=== PATIENT | female | born 1940 | race Caucasian/White ===

== ENCOUNTER 2024-02-05 06:36 | Day surgery (SDC) | payer OTHER, SELFPAY ==
--- NOTE | 2024-01-24 12:38 | CM ---
Addendum entered by Laura Dunn 02/05/24 09:47:
VN referral sent to [facility] for PT, OT, SN; start of care requested on 02/06. Confirmation received that they can accept referra. Fax number for discharge instructions: [phone]
Original Note:
Patient is scheduled for a left ankle fusion on 02/05/24. Spoke with patient prior to surgery via telephone to complete case management assessment and assess for discharge planning needs. Patient reports that she lives with her in a one floor
cottage at [facility]. There are no steps to enter. She currently functions independently. She has a rolling walker, cane, raised toilet seat with rails and shower seat. She had VN services through [facility] after her R TKR (done at
in 2022). She has a prescription plan and uses [facility] in [place].
PCP is Warren Rebollar
Discussed discharge plans. Patient anticipates being NWB for 8 weeks. She plans to return to her cottage at [facility] and states that her will be able to assist her. She has worked with PT at [facility] (PT provided by [facility]) using a knee scooter and a knee sling on her walker. She states that the PT has recommended she use the knee sling on her walker (she will bring this walker with her on day of surgery). Discussed VN services and she would like to use [facility] again.
Call placed to [facility] ([phone]); spoke with Bill. Alerted him to need for VN services after surgery. Referral will be made to [facility] through [employer] prior to surgery.
[2024-01-26 09:22] VITALS: BMI 23.6
[2024-01-26 09:57] LABS: % Basophils 0.5 % (0-2); % Eosinophils 1.9 % (0-6); % Immature Granulocytes 0.3 % (0-0.5); % Lymphocytes 24.3 % (20.5-51.1); % Monocytes 9.3 % (1.7-9.3); % Neutrophils 63.7 % (42.2-75.2); Absolute Eosinophils 0.1 10^3/uL (0-0.7); Absolute Lymphocytes 1.8 10^3/uL (1.2-3.4); Absolute Monocytes 0.7 10^3/uL (0.1-0.6); Absolute Neutrophils 4.8 10^3/uL (1.4-6.5); Hematocrit 35.7 % (37.0-47.0); Hemoglobin 11.7 g/dL (12.0-16.0); Mean Corp Hgb Conc. 32.8 g/dL (33.0-37.0); Mean Corpuscular Hgb 31.5 pg (27.0-31.0); Mean Corpuscular Volume 96.2 fL (81.0-99.0); Mean Platelet Volume 10.9 fL (7.4-10.4); Nucleated Red Blood Cells % 0 %; Platelet Count 193 10^3/uL (130-400); Red Blood Cell Count 3.71 10^6/uL (4.20-5.40); Red Cell Dist. Width 13.2 % (11.5-14.5); White Blood Cell Count 7.5 10^3/uL (4.8-10.8)
[2024-01-26 10:09] LABS: Blood Urea Nitrogen 16 mg/dl (7-17); Calcium 9.1 mg/dl (8.4-10.2); Carbon Dioxide 28 mmol/L (22-30); Chloride 107 mmol/L (98-107); Estimated Creatinine Clearance 65 ml/min; Glucose 80 mg/dl (70-99); Potassium 4.6 mmol/L (3.5-5.1); Sodium 137 mmol/L (135-145); eGFR > 60.00
[2024-02-05] VITALS (9 sets, daily range): BP systolic 113–144; BP diastolic 48–66; BMI 23.6
[2024-02-05] MEDS: MOBIC 15 MG PO (12:57)
[2024-02-05] MEDS: NORMOSOL-R 1000 IV (13:10)
--- NOTE | 2024-02-05 16:51 | W.PN.UPDATE ---
Update Note
Progress Note Update
s/p left subtalar joint arthrodesis
-NWB LLE
-ABx x 24 hours or until discharge if D/C'ed earlier than 24 hours
-PT/OT Consult
-Dressings C/D/I
-Will Follow
[2024-02-05] MEDS: DILAUDID 0.5 MG IV (17:00)
--- NOTE | 2024-02-05 17:30 | HPS.HSE ---
Family Physician
-
Family Physician: Warren Rebollar
Chief Complaint
-
84-year-old female past medical history of hypotension, hemochromatosis, osteoarthritis, chronic diarrhea, hyperlipidemia, hiatal hernia, diverticulosis, right renal cyst, small bowel obstruction status post small bowel resection, essential tremor,
restless leg syndrome, stress incontinence, Raynaud's syndrome presented for left subtalar joint arthrodesis due to arch pain of the left foot ongoing for years.
Patient denies any complaints at this time. Denies smoking or alcohol use.
History of Present Illness
hypotension, hemochromatosis, osteoarthritis, chronic diarrhea, hyperlipidemia, hiatal hernia, diverticulosis, right renal cyst, small bowel obstruction status post small bowel resection, essential tremor, restless leg syndrome, stress
incontinence, Raynaud's syndrome
Medical History
Past Medical History
Past Medical History: Reports Other (hypotension, hemochromatosis, osteoarthritis, chronic diarrhea, hyperlipidemia, hiatal hernia, diverticulosis, right renal cyst, small bowel obstruction status post small bowel resection, essential tremor,
restless leg syndrome, stress incontinence, Raynaud's syndrome)
Past Surgical History: Reports None and Other
Social History
Tobacco: Non-smoker
Alcohol: None
Drug: None
Family History
Family History: Not pertinent
Allergies / Home Medications
Allergies reflects when Allergies were last updated in [facility] [employer].
Home Medications with original date entered in [facility] [employer]
Allergy/Medication List:
Allergies
Allergy/AdvReac Type Severity Reaction Status Date / Time
acetaminophen [From Tylenol] Allergy Intermediate diarrhea Verified 02/05/24 12:52
amoxicillin [From Augmentin] Allergy Intermediate diarrhea Verified 02/05/24 12:52
clavulanic acid Allergy Intermediate diarrhea Verified 02/05/24 12:52
[From Augmentin]
azithromycin Allergy diarrhea Verified 02/05/24 12:52
chlorpheniramine maleate Allergy COLLAPSE/NA Verified 02/05/24 12:52
[From Coricidin HBP Cough & USEA
Cold]
dextromethorphan HBr Allergy COLLAPSE/NA Verified 02/05/24 12:52
[From Coricidin HBP Cough & USEA
Cold]
nitrofurantoin Allergy Hives Verified 02/05/24 12:52
pseudoephedrine Allergy NAUSEA AND Verified 02/05/24 12:52
VOMITING/WEAK
ranitidine [From Zantac] Allergy Swelling Verified 02/05/24 12:52
Sulfa (Sulfonamide Allergy SEVERE Verified 02/05/24 12:52
Antibiotics) HIVES
sulfamethoxazole Allergy Hives Verified 02/05/24 12:52
trimethoprim Allergy Hives Verified 02/05/24 12:52
codeine AdvReac GI upset Verified 02/05/24 12:52
dimenhydrinate AdvReac Excessive Verified 02/05/24 12:52
[From Dramamine] drowsiness
Home Medications
loperamide 2 mg capsule 2 mg PO Q4H PRN diarrnea 03/22/23
primidone 50 mg tablet 25 mg PO HS Neurological Condition 03/22/23
cholecalciferol (vitamin D3) 25 mcg (1,000 unit) tablet 25 mcg PO MOWEFR Supplement 03/30/23
artificial tears with lanolin eye ointment 1 applic BOTH EYES DAILY 04/20/23
pimecrolimus 1 % topical cream 1 applic topical DAILY #0 grams 04/21/23
estradiol 0.01% (0.1 mg/gram) vaginal cream (Estrace) 1 g vaginal QWEEK 01/30/24
ibuprofen 200 mg tablet 200 - 400 mg PO Q6H PRN pain 01/30/24
meloxicam 7.5 mg tablet 7.5 mg PO PRN PRN pain 01/30/24
psyllium seed (sugar) oral powder (Metamucil (sugar) oral powder) 1 tsp PO DAILY 01/30/24
tacrolimus 0.1 % topical ointment (Protopic) 1 applic topical WEEKLY 01/30/24
Review of Systems
-
History Source: Patient
A 12 point ROS was completed and negative except as noted: Yes
Constitutional: Reports No Symptoms
EENT: Reports No Symptoms
Respiratory: Reports No Symptoms
Cardiac: Reports No Symptoms
Abdomen/GI: Reports No Symptoms
: Reports No Symptoms
Musculoskeletal: Reports No Symptoms
Skin: Reports No Symptoms
Neurological: Reports No Symptoms
Endocrine: Reports No Symptoms
Hematologic/Lymphatic: Reports No Symptoms
Psych: Reports No Symptoms
Physical Exam
Vital Signs
Vital Signs
Temp Pulse Resp BP Pulse Ox
97.3 F 65 18 134/48 100
02/05/24 16:40 02/05/24 17:15 02/05/24 17:15 02/05/24 17:15 02/05/24 17:15
Physical Exam
General: Well Developed, Well Nourished and No Apparent Distress
HEENT: NormoCephalic, Moist mucous membranes and Atraumatic
Respiratory: Clear
Cardiac: S1/S2 and Regular Rhythm; No Murmur or Rub
GI: Soft, Non Tender, Non Distended and Normal Bowel Sounds; No Organomegaly
Rectal: Deferred by Provider
Musculoskeletal: No Clubbing, No Cyanosis and No Edema
Skin: No Rash
Neuro: Nonfocal/grossly intact
Laboratory Results
-
01/26/24 09:16
01/26/24 09:16
Data Reviewed
-
Lab Data: Labs Reviewed by me
Old Records: Reviewed
Impression/Plan
-
IMPRESSION:
PLAN:
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
-meloxicam, tramadol, gabapentin, oxycodone for pain
-Patient refusing Tylenol
-Nonweightbearing of left lower extremity
-Continue cefazolin until discharge or for 24 hours
-PT/OT
Osteoarthritis
Hemochromatosis
History of ocular migraines
Chronic diarrhea
-Continue loperamide
History of hypotension
Hyperlipidemia
Hiatal hernia
Diverticulosis
History of right renal cyst
Small bowel obstruction status post small bowel resection
Essential tremor
-Continue primidone
Restless leg syndrome
Stress incontinence
Raynaud's syndrome
Regular diet
Full code
DVT prophylaxis�none
--- NOTE | 2024-02-05 18:50 | PTCARENOTE ---
Received patient from PACU via bed around 1809 in stable condition. Left LE with poonam wrap/ splint. +sensation + movement. NWB LLE. Call [facility] in reach.
[2024-02-05] MEDS: ANCEF 5 IV (21:44)
[2024-02-05] MEDS: NEURONTIN 300 MG PO (21:44)
[2024-02-05] MEDS: MYSOLINE 25 MG PO (21:44)
[2024-02-06] VITALS (7 sets, daily range): BP systolic 106–126; BP diastolic 45–66; PULSE 81; O2SAT 98
[2024-02-06] MEDS: ANCEF 5 IV ×3 (05:22→23:07)
--- NOTE | 2024-02-06 07:03 | W.PN.ORTHO ---
Today's Communication / Plan
-
PT/OT
Aspirin for DVT prophylaxis
Strict nonweightbearing left lower extremity
Antibiotics for 24 hours then home
Follow-up 2 weeks postop for suture removal
Assessment
.
Distal Motor Intact: Yes
Dressing:
Clean, dry and intact.
Plan
.
Surgery / Date: L STJ fusion 02/04 [facility]
DVT Prophylaxis: Aspirin
Activity:
Out of bed.
PT/OT
Discharge Plan: Home
Subjective
.
.:
Patient resting comfortably.
Vital Signs and Labs
.
Vital Signs and Labs:
Lab Results
01/26/24 09:16
01/26/24 09:16
Temp Pulse Resp BP Pulse Ox
98.2 F 77 16 119/54 97
02/06/24 03:40 02/06/24 03:40 02/06/24 03:40 02/06/24 03:40 02/06/24 03:40
[2024-02-06] MEDS: METAMUCIL, KONSYL 1 PACKET PO (08:41)
[2024-02-06] MEDS: REFRESH CELLUVISC GEL 1 DROPS BOTH EYES (08:41)
[2024-02-06] MEDS: NEURONTIN 300 MG PO ×3 (08:42→21:49)
[2024-02-06] MEDS: ASPIRIN 325 MG PO (08:42)
--- NOTE | 2024-02-06 09:29 | W.PN.HOSP.TC ---
Today's Communication/Plan
-
F/U PT Eval
possible DC later today versus tomorrow morning
IV Cefazolin
Assessment / Plan
Assessment / Plan
84-year-old female past medical history of hypotension, hemochromatosis, osteoarthritis, chronic diarrhea, hyperlipidemia, hiatal hernia, diverticulosis, right renal cyst, small bowel obstruction status post small bowel resection, essential tremor,
restless leg syndrome, stress incontinence, Raynaud's syndrome presented for left subtalar joint arthrodesis due to arch pain of the left foot ongoing for years.
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
-meloxicam, tramadol, gabapentin, oxycodone for pain
-Nonweightbearing of left lower extremity
-Continue cefazolin
-PT - F/U recs
-possible DC after evening antibiotics
Osteoarthritis
Hemochromatosis
History of ocular migraines
Chronic diarrhea
-Continue loperamide
History of hypotension
Hyperlipidemia
Hiatal hernia
Diverticulosis
History of right renal cyst
Small bowel obstruction status post small bowel resection
Essential tremor
-Continue primidone
Restless leg syndrome
Stress incontinence
Raynaud's syndrome
Regular diet
Full code
DVT prophylaxis�none
Anticipated Discharge: Within 24 hours
Subjective/Interval History
-
Date of Service: February 06, 2024
some pain left foot
no chest pain or shortness of breath
Objective Data
-
Vital Signs:
Vital Signs
Temp Pulse Resp BP Pulse Ox
98.2 F 77 16 119/54 97
02/06/24 03:40 02/06/24 03:40 02/06/24 03:40 02/06/24 03:40 02/06/24 03:40
I&O
05/02/06/24 02/07/24
06:59 06:59 06:59
Intake Total 370 / 370
Output Total 800 / 800
Balance -430 / -430
Review of Systems
-
History Source: Patient
All other systems: Reviewed and negative
Physical Exam
-
General: No Apparent Distress
HEENT: PERRLA
Respiratory: Clear to Auscultation; Negative Wheezes
Cardiac: Regular Rhythm and S1/S2
GI: Soft and Nontender
Musculoskeletal: Other (left foot wrapped )
Skin: Warm and Dry; Negative Rash
Neuro: AO x 3
Psych: Calm
Data Reviewed
-
Diagnostic Radiology: Report Reviewed by me
Labs: Labs Reviewed by me
[2024-02-06] MEDS: ROXICODONE 5 MG PO ×2 (13:25→23:09)
--- NOTE | 2024-02-06 14:37 | CM ---
Strict nonweightbearing status LLE. Discharge Plan of Care: Home with with [facility].
FAX # [phone].
[2024-02-06] MEDS: ULTRAM 50 MG PO (18:08)
[2024-02-06] MEDS: COLACE 100 MG PO (18:16)
[2024-02-06] MEDS: MYSOLINE 25 MG PO (21:49)
--- NOTE | 2024-02-07 04:26 | DOWNTIME ---
There was a [employer] Client Release Of Information Clerk Downtime on 02/06/2024 from 0100 to 02/07/2024 at 0300. Downtime documentation of patient's care, including medication administrations, has been reconciled in the electronic record per guidelines. Refer to the
patient's paper chart under the miscellaneous tab to see printed paper medication records and downtime forms.
[2024-02-07] MEDS: ANCEF 5 IV (05:25)
[2024-02-07 07:41] VITALS: BP 109/72
[2024-02-07] MEDS: NEURONTIN 300 MG PO (08:11)
[2024-02-07] MEDS: ASPIRIN 325 MG PO (08:11)
[2024-02-07] MEDS: REFRESH CELLUVISC GEL 1 DROPS BOTH EYES (08:11)
[2024-02-07] MEDS: METAMUCIL, KONSYL 1 PACKET PO (08:11)
[2024-02-07] MEDS: VITAMIN D3 (cholecalciferol) 25 MCG PO (08:14)
--- NOTE | 2024-02-07 08:16 | W.PN.ORTHO ---
Today's Communication / Plan
-
PT/OT
Aspirin for DVT prophylaxis
Strict nonweightbearing left lower extremity
Antibiotics for 24 hours then home
Follow-up 2 weeks postop for suture removal
Assessment
.
Distal Motor Intact: Yes
Dressing:
Clean, dry and intact.
Plan
.
Surgery / Date: L STJ fusion 02/04 [facility]
Activity:
Out of bed.
PT/OT
Subjective
.
.:
Patient resting comfortably.
Vital Signs and Labs
.
Vital Signs and Labs:
Lab Results
01/26/24 09:16
01/26/24 09:16
Temp Pulse Resp BP Pulse Ox
98.8 F 80 16 109/72 97
02/07/24 07:41 02/07/24 07:41 02/07/24 07:41 02/07/24 07:41 02/07/24 07:41
[2024-02-07] MEDS: COLACE 100 MG PO (08:24)
--- NOTE | 2024-02-07 09:40 | W.PN.HOSP.TC ---
Today's Communication/Plan
-
OK for DC today after seen by PT
Assessment / Plan
Assessment / Plan
84-year-old female past medical history of hypotension, hemochromatosis, osteoarthritis, chronic diarrhea, hyperlipidemia, hiatal hernia, diverticulosis, right renal cyst, small bowel obstruction status post small bowel resection, essential tremor,
restless leg syndrome, stress incontinence, Raynaud's syndrome presented for left subtalar joint arthrodesis due to arch pain of the left foot ongoing for years.
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
-pain control
-Nonweightbearing of left lower extremity
-s/p 24 hours IV antibiotics
-PT --> HH, OK for DC today
-follow up 2 weeks post-op for suture removal
Osteoarthritis
Hemochromatosis
History of ocular migraines
Chronic diarrhea
-Continue loperamide
History of hypotension
Hyperlipidemia
Hiatal hernia
Diverticulosis
History of right renal cyst
Small bowel obstruction status post small bowel resection
Essential tremor
-Continue primidone
Restless leg syndrome
Stress incontinence
Raynaud's syndrome
Regular diet
Full code
DVT prophylaxis�none
Anticipated Discharge: Today
Subjective/Interval History
-
Date of Service: February 07, 2024
feeling well
feels ready to go home
no chest pain or shortness of breath
Objective Data
-
Vital Signs:
Vital Signs
Temp Pulse Resp BP Pulse Ox
98.8 F 80 16 109/72 97
02/07/24 07:41 02/07/24 07:41 02/07/24 07:41 02/07/24 07:41 02/07/24 07:41
I&O
05/14/24 05/15/24 05/16/24
06:59 06:59 06:59
Intake Total 370 / 370 180 / 180
Output Total 800 / 800
Balance -430 / -430 180 / 180
Review of Systems
-
History Source: Patient
All other systems: Reviewed and negative
Physical Exam
-
General: No Apparent Distress
HEENT: PERRLA
Respiratory: Clear to Auscultation; Negative Wheezes
Cardiac: Regular Rhythm and S1/S2
GI: Soft and Nontender
Musculoskeletal: Other (left foot wrapped )
Skin: Warm and Dry; Negative Rash
Neuro: AO x 3
Psych: Calm
Data Reviewed
-
Diagnostic Radiology: Report Reviewed by me
Labs: Labs Reviewed by me
--- NOTE | 2024-02-07 10:00 | W.DS.TRANS ---
DC Summary - Exercise Specialist
-
Discharge Instructions:
Sleep Apnea Risk Low
Discharge Diagnosis/Procedures Left subtalar joint arthrodesis, calcaneal
cyst excision with allograft packing, and
juxtaposition lipoma
excision. 02/05/24
Diet Regular
Additional Activity non-weight bearing left lower extremity
Driving Restrictions Not until seen by your Dr
Bathing Restrictions None
Other Services VN,PT,OT
Instructions:
Stand-Alone Forms:
Changes to Home Medications: Yes
Discharge Medications:
DC Medications w/original date entered in [employer]
loperamide 2 mg capsule 2 mg PO Q4H PRN diarrnea 03/22/23
primidone 50 mg tablet 25 mg PO HS Neurological Condition 03/22/23
cholecalciferol (vitamin D3) 25 mcg (1,000 unit) tablet 25 mcg PO MOWEFR Supplement 03/30/23
artificial tears with lanolin eye ointment 1 applic BOTH EYES DAILY 04/20/23
pimecrolimus 1 % topical cream 1 applic topical DAILY #0 grams 04/21/23
estradiol 0.01% (0.1 mg/gram) vaginal cream (Estrace) 1 g vaginal QWEEK 01/30/24
meloxicam 7.5 mg tablet 7.5 mg PO PRN PRN pain 01/30/24
psyllium seed (sugar) oral powder (Metamucil (sugar) oral powder) 1 tsp PO DAILY 01/30/24
tacrolimus 0.1 % topical ointment (Protopic) 1 applic topical WEEKLY 01/30/24
aspirin 325 mg tablet 325 mg PO DAILY #41 tabs 02/06/24
gabapentin 300 mg capsule 300 mg PO HS #30 caps 02/06/24
oxycodone 5 mg tablet 5 mg PO Q6H PRN severe pain #10 tabs 02/07/24
Home Medication Changes
addition of oxy PRN
gabapentin added
asa 325
Pending Results: No
--- NOTE | 2024-02-07 10:06 | W.DS.TRANS ---
DC Summary - Home Health Care Respiratory Therapist
-
Discharge Instructions:
Sleep Apnea Risk Low
Discharge Diagnosis/Procedures Left subtalar joint arthrodesis, calcaneal
cyst excision with allograft packing, and
juxtaposition lipoma
excision. 02/05/24
Diet Regular
Additional Activity non-weight bearing left lower extremity
Driving Restrictions Not until seen by your Dr
Bathing Restrictions None
Other Services VN,PT,OT
Instructions:
Stand-Alone Forms:
Changes to Home Medications: Yes
Discharge Medications:
DC Medications w/original date entered in [employer]
loperamide 2 mg capsule 2 mg PO Q4H PRN diarrnea 03/22/23
primidone 50 mg tablet 25 mg PO HS Neurological Condition 03/22/23
cholecalciferol (vitamin D3) 25 mcg (1,000 unit) tablet 25 mcg PO MOWEFR Supplement 03/30/23
artificial tears with lanolin eye ointment 1 applic BOTH EYES DAILY 04/20/23
pimecrolimus 1 % topical cream 1 applic topical DAILY #0 grams 04/21/23
estradiol 0.01% (0.1 mg/gram) vaginal cream (Estrace) 1 g vaginal QWEEK 01/30/24
meloxicam 7.5 mg tablet 7.5 mg PO PRN PRN pain 01/30/24
psyllium seed (sugar) oral powder (Metamucil (sugar) oral powder) 1 tsp PO DAILY 01/30/24
tacrolimus 0.1 % topical ointment (Protopic) 1 applic topical WEEKLY 01/30/24
aspirin 325 mg tablet 325 mg PO DAILY #41 tabs 02/06/24
gabapentin 300 mg capsule 300 mg PO HS #30 caps 02/07/24
tramadol 50 mg tablet 50 mg PO Q8H PRN severe pain #30 tabs 02/07/24
Home Medication Changes
addition of gabapentin, Tramadol
asa 325
Pending Results: No
[2024-02-07 11:30] VITALS: BP 110/54; BP 111/55; BP 114/52; PULSE 81; PULSE 90; O2SAT 96
--- NOTE | 2024-02-07 11:33 | CM ---
met with patient at bedside.she lives with her in [facility] with no mary,her bed and bath is on first level,her pcp is dr jennings,she uses [facility] in [place] patient has had a vn post knee surgery from [facility], there are no episodes of ip rehab
patient is sp left subtalar joint arthrodesis.she is nwb lle.she has a walker at home with a knee sling to assist with her nwb status.patient was seen by therapy who recommended home care services.patient is asking doctor to fax a script for home
physical therapy to [facility].i have called [facility] to find out if referral to hc agency is needed.patient signed imm letter. to transport patient home.
--- NOTE | 2024-02-07 13:12 | W.DCSUMMARY ---
Discharge Summary
Discharge Data
Date of Admission: 02/05/24
Date of Discharge: 02/07/24
-
Pending Results: No
Hospital Course
Discharging Physician : Dr. Martha Dubon
Disposition : Home
Primary care physician : Dr. Warren Rebollar
Principal Discharge diagnosis : Left subtalar joint arthrodesis, calcaneal
cyst excision with allograft packing, and juxtaposition lipoma
excision. 02/05/24
Hospital Course :
Ms. Amy Bunn is a 84-year-old female with past medical history of hypotension, hemochromatosis, osteoarthritis, chronic diarrhea, hyperlipidemia, hiatal hernia, diverticulosis, right renal cyst, small bowel obstruction status post small bowel
resection, essential tremor, restless leg syndrome, stress incontinence, Raynaud's syndrome presented for left subtalar joint arthrodesis due to arch pain of the left foot ongoing for years. She is s/p left subtalar joint arthrodesis, calcaneal
cyst excision with allograft packing, and juxtaposition lipoma excision on 02/05/24. Patient did well post-op. She was on antibiotics x 24 hours and is discharged home with home health and outpatient follow up with Dr. Morillo.
Important imaging findings :
Procedure findings :
Discharge Plan
-
Patient Disposition: Home with Home Care
Discharge Diagnosis/Procedures: Left subtalar joint arthrodesis, calcaneal
cyst excision with allograft packing, and juxtaposition lipoma
excision. 02/05/24
Diet: Regular
Additional Activity: non-weight bearing left lower extremity
Driving Restrictions: Not until seen by your Dr
Bathing Restrictions: None
Other Services: VN, PT and OT
Referrals:
Warren Rebollar MD [Family Provider] - in less than 1 week
Abdirahman Morillo DPM [Active] - in two weeks
Additional Discharge Medication Instructions: Sutures to be removed at follow up appointment with Dr. Morillo
Do not bear weight on left lower extremity to allow for healing.
You will be on aspirin for 6 weeks to prevent blood clots. Take once daily with food.
You are prescribed Gabapentin to help with pain. Take this once in the evenings. This medication can be increased if needed as outpatient. Dr. Morillo sent over script that is written for 3x/day but given may cause dizziness can start with once
in evenings.
You are prescribed Tramadol by Dr. Morillo to take as needed for severe pain.
Caution with taking NSAIDs (Meloxicam, Motrin, Aleve, Advil, Ibuprofen etc) given you are now taking daily aspirin. If you need to take it limit to once daily and always take with food.
Prescriptions:
New
aspirin 325 mg Tablet
325 mg PO DAILY Qty: 41 0RF
gabapentin 300 mg capsule
300 mg PO HS Qty: 30 0RF
tramadol 50 mg tablet
50 mg PO Q8H PRN (Reason: severe pain) Qty: 30 0RF
Continued
primidone 50 mg Tablet
25 mg PO HS
loperamide 2 mg Capsule
2 mg PO Q4H PRN (Reason: diarrnea)
cholecalciferol (vitamin D3) 25 mcg (1,000 unit) Tablet
25 mcg PO MOWEFR
artificial tears with lanolin Ointment
1 applic BOTH EYES DAILY
pimecrolimus 1 % Cream
1 applic TOPICAL DAILY Qty: 0 0RF
Rx Instructions:
DO NOT APPLY TO RIGHT KNEE.
meloxicam 7.5 mg Tablet
7.5 mg PO PRN PRN (Reason: pain)
estradiol [Estrace] 0.01 % (0.1 mg/gram) Cream
1 g VAGINAL QWEEK
Rx Instructions:
Q SAT
Metamucil (sugar) Powder
1 tsp PO DAILY
tacrolimus [Protopic] 0.1 % ointment
1 applic TOPICAL WEEKLY
Rx Instructions:
DO NOT APPLY TO RIGHT KNEE.
Discontinued
ibuprofen 200 mg Tablet
200 - 400 mg PO Q6H PRN (Reason: pain)
Discharge Orders:
Discharge Patient (As Directed); Ordered 02/07/24
Ordered By: Martha Dubon
Discharge Date and Time
Print Language: NEPALI
--- NOTE | 2024-02-07 13:30 | PTCARENOTE ---
[facility] medical office worker- Cj texted Dr. Dubon to retransmit neurotin and tramadol. As per Dr Dubon [facility]
[2024-02-07 13:49] VITALS: BP 114/54
--- NOTE | 2024-02-08 13:09 | CM ---
patient was dc [place] at [facility] on 02/06.[facility] did not return my call after many attempts.i did receive a call back from [facility] physical therapist who indicated patient needs a script to go to therapy as an op at [facility] which would
go through [facility].i also spoke with [facility] and they asked for script to be faxed to them.they are familiar with this patient and will await script.i sent TT to dr dumont who will write sccript and tube it to [facility].i will fax
script to [phone].
== END 2024-02-07 15:29 | disposition home health service (06) ==
LOC: SDS 06:36
PROVIDERS: ATTENDING PHYSICIAN Student in an Organized Health Care Education/Training Program; CONSULT PHYSICIAN Student in an Organized Health Care Education/Training Program; FAMILY PHYSICIAN Family Medicine; OTHER PHYSICIAN Internal Medicine Interventional Cardiology
DX: M19.072 Primary osteoarthritis, left ankle and foot (principal); M85.672 Other cyst of bone, left ankle and foot; D17.24 Benign lipomatous neoplasm of skin and subcutaneous tissue of left leg; G25.81 Restless legs syndrome; E83.119 Hemochromatosis, unspecified
CPT/HCPCS: 28725; 28102; 28043; 36415; 73610; 76000; 80048; 85025; 93005; 97116; 97163; 97167; 97530

== ENCOUNTER → 2024-04-23 10:11 | Outpatient (REF) | payer OTHER, SELFPAY | LOC: WDC 10:11 | PROVIDERS: ATTENDING PHYSICIAN Obstetrics & Gynecology; OTHER PHYSICIAN Psychiatry & Neurology Neurology | DX: H53.9 Unspecified visual disturbance (principal); Z12.31 Encounter for screening mammogram for malignant neoplasm of breast | CPT/HCPCS: 77063; 77067; 93306; 93880 ==

== ENCOUNTER 2024-08-01 08:16 | Inpatient (IN) | payer OTHER, SELFPAY ==
[2024-07-04 14:09] VITALS: BMI 23.8
[2024-07-04 14:46] LABS: Hematocrit 33.1 % (37.0-47.0); Hemoglobin 11.3 g/dL (12.0-16.0); Mean Corp Hgb Conc. 34.1 g/dL (33.0-37.0); Mean Corpuscular Hgb 30.8 pg (27.0-31.0); Mean Corpuscular Volume 90.2 fL (81.0-99.0); Mean Platelet Volume 10.6 fL (7.4-10.4); Platelet Count 184 10^3/uL (130-400); Red Blood Cell Count 3.67 10^6/uL (4.20-5.40); Red Cell Dist. Width 13.5 % (11.5-14.5); White Blood Cell Count 6.8 10^3/uL (4.8-10.8)
[2024-07-04 15:19] LABS: ALT (SGPT) 19 U/L (0-35); AST (SGOT) 26 U/L (14-36); Albumin 3.8 g/dl (3.5-5.0); Alkaline Phosphatase 57 U/L (38-126); Blood Urea Nitrogen 17 mg/dl (7-17); Calcium 9.2 mg/dl (8.4-10.2); Carbon Dioxide 27 mmol/L (22-30); Chloride 105 mmol/L (98-107); Estimated Creatinine Clearance 63 ml/min; Glucose 105 mg/dl (70-99); Potassium 5.1 mmol/L (3.5-5.1); Sodium 140 mmol/L (135-145); Total Bilirubin < 0.1 mg/dl (0.2-1.3); eGFR > 60.00
[2024-07-05 09:13] LABS: Glycohemoglobin (HgbA1c) 5.4 % (4.0-5.6)
[2024-07-29 07:55] VITALS: BMI 23.8
[2024-08-01] VITALS (12 sets, daily range): BP systolic 111–150; BP diastolic 44–71; PULSE 67–82; O2SAT 99–100
[2024-08-01] MEDS: MOBIC 15 MG PO (08:59)
[2024-08-01] MEDS: ROXICODONE 5 MG PO ×3 (13:36→22:04)
[2024-08-01] MEDS: NORMOSOL-R/PLASMALYTE-A 1000 IV (13:45)
--- NOTE | 2024-08-01 14:05 | W.PN.ORTHO ---
Today's Communication / Plan
-
D/c when clinically stable.
Assessment
.
Distal Motor Intact: Yes
Dressing:
Clean, dry and intact.
Assessment:
R hip OA s/p R [place] w/ Dr Fowler 08/01/24
- s/p R TKA, 03/2023, by Dr Herrera
DVT prophylaxis - ASA, b/l venous foot pumps
History of hypotension, improving with adequate hydration - monitor BP
- IVF running
- Encourage oral hydration
Hiatal hernia - add Protonix (tolerated previously after R TKA)
Chronic diarrhea - Colace ONLY for post-surgical bowel regimen
Dyslipidemia
Diverticulosis
Right renal cysts
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
Benign essential tremor, controlled with Primidone
Restless leg syndrome
Multilevel degenerative disc disease
Dysplasia of hard palate, treated conservatively
Stress incontinence
Hemochromatosis, status post previous phlebotomy
Lichen sclerosis
Lichen planus
Raynaud's syndrome
COVID-19, 07/2022, without residual deficits
Plan
.
Surgery / Date: R [facility] w/ Dr Fowler 08/01/24
DVT Prophylaxis: Aspirin
Activity:
Out of bed.
PT/OT
Discharge Plan: Home w/ Outpatient PT
Subjective
.
.:
Patient resting comfortably in PACU.
R hip pain currently well tolerated.
Denies any new significant complaints.
Vital Signs and Labs
.
Vital Signs and Labs:
Lab Results
07/04/24 13:08
07/04/24 13:08
Physical Exam
-
HEENT: No pallor, cyanosis, or jaundice. Throat clear.
NECK: Supple. No JVD.
RESPIRATORY: Lungs clear to auscultation.
CVS: S1, S2 normal. RRR.
ABDOMEN: Soft, non-tender. No distension.
EXTREMITIES: Strength equal, no calf pain with palpation/dorsiflexion. Calves soft.
VISUAL DISPLAY ASSOCIATE: AOx3. No focal deficits. miniature model maker grossly intact
--- NOTE | 2024-08-01 14:11 | PTCARENOTE ---
Pt received from the PACU via stretcher. Transport was w/o incident. Pt is AAOx3, HRR, SR on cafeteria monitor. Resp easy, 100%RA. Pt denies nausea or pain. Pt reports feeling to right leg, and can wiggle toes of right foot, although Pt reports the
sensation to right leg/foot is less than the feeling to the left leg. Will continue to monitor for return of full sensation post spinal anesthesia. Silver Mepilex dressing intact, no drainage noted to right hip. VSS, Pt is afebrile. Pt instructed on
plan of care. Pt verbalized understanding of instructions. Call fairchild is within reach.
--- NOTE | 2024-08-01 16:49 | OR.RPT ---
Operative Report
Operative Report
Orthopaedic Surgery Operative Note
DATE OF OPERATION: 08/01/2024
PREOPERATIVE DIAGNOSES: Right hip osteoarthritis
POSTOPERATIVE DIAGNOSES: Same
OPERATION PERFORMED: Right total hip arthroplasty.
SURGEON: Bernabe Fowler MD
SAFETY LEAD: Yan House PA-C who helped with patient and limb positioning and retraction
ANESTHESIA: Spinal
COMPLICATIONS: None.
ESTIMATED BLOOD LOSS: 50 mL.
DRAINS: None
SPECIMEN: None
FINDINGS: Full thickness degenerative changes to the femoral head
IMPLANTS:
Victor M Trilogy Acetabular Shell, cluster hole, size 52mm
Victor M Trilogy Highly Crosslinked PE Liner, neutral
Vitcor M Heritage stem, size 13 with standard offset with distal centralizer
DJO bone cement; small cement restrictor
Biolox Ceramic Head, size 36mm +0
INDICATIONS: The patient presented to my office with debilitating right hip pain due to osteoarthritis. We reviewed the natural history of this problem, as well as the risks, benefits, and alternatives of various treatment options. The patient
exhausted all nonoperative treatment options and wished to proceed with hip replacement surgery. The patient understood the risks which included, but were not limited to, bleeding, infection, failure to relieve pain, more pain than preop, damage to
blood vessels and nerves, need for reoperation, mechanical failure of the implants, wound healing problems, stiffness, instability, blood clot, pulmonary embolism, myocardial infarction, pneumonia, arrhythmia, CVA, and . The patient accepted
these risks and wished to proceed. All questions were answered, and informed consent was obtained.
PROCEDURE IN DETAIL: The patient was identified in the preoperative holding area. The right hip was identified as the operative site. The patient was taken in the operating room and transferred to the operative table. Spinal anesthesia was
performed. IV antibiotics and tranexamic acid were administered. The patient was placed in the lateral position with Stulberg hip positioners. Axillary roll was placed. The down leg was well padded. All bony prominences were well padded. The
operative limb was prepped and draped in the usual sterile fashion.
Time out was performed. A posterolateral approach to the hip was used. The skin incision was centered over the greater trochanter. This was taken down sharply through subcutaneous tissues. Meticulous hemostasis was achieved throughout the case with
electrocautery. We split the fascia lee in line with skin incision. I split the gluteus parul bluntly. We cauterized all crossing vessels as we split it. I palpated the sciatic nerve and made sure it was well posterior in the operative field. It
was protected throughout the case.
I performed a partial bursectomy to identify the short external rotators. The gluteus medius and minimus were identified and retracted anteriorly. I incised the piriformis tendon and conjoint tendon at their insertions. These were tagged for later
repair. I then performed a trapezoidal capsulotomy. The edges were tagged for later repair. I referenced the cut edge of the capsular flap to 2 fixed points on the greater trochanter for assistance with recreation of limb length and offset. I then
dislocated the hip posteriorly. I performed a femoral neck osteotomy approximately 10 mm above the lesser trochanter, as per preoperative templating. The femoral head measured 48 mm in outer diameter. The distance between the neck cut and the center
of the femoral head was measured to be 35mm. I placed a curve hohmann retractor over the anterior lip of the acetabulum between the labrum and the anterior hip capsule. A second retractor was placed inferiorly just distal to the transverse
acetabular ligament. Circumferential view of the acetabulum was achieved. I incised the labrum and pulvinar with electrocautery. I started with a 47 mm reamer and reamed down to the medial wall. I then sequentially reamed up to a 51mm reamer. This
gave a nice bed of bleeding bone with excellent column support anteriorly and posteriorly. I impacted the acetabular shell in approximately 40 degrees of abduction and 20 degrees of anteversion. I matched the anteversion of the transverse acetabular
ligament. I also made sure that the anterior rim of the socket was not proud of the anterior wall to minimize the chance of iliopsoas tendinitis. I confirmed the cup was well-seated. I then impacted a neutral liner and confirmed it was well seated
with the locking mechanism.
Attention was turned to the femur. Box osteotome and Charnley awe were used to open the canal. The femur was sequentially broached to size 13 which had appropriate fit and fill. A trial head was placed with standard offset neck and the hip was
reduced. Leg length and offset were checked and found to be appropriate. Distance between femoral head and neck cut was 37.5mm. The hip was taken through complete range of motion and found to be stable in extension, the position of sleep, and at 90
degrees of flexion and internal rotation.
Trials were removed and the femoral canal was prepared with irrigation and ribbon gauze packing sequentially. A cement restrictor was placed into the femoral canal 1cm distal to the tip of the femoral stem. This was measured off the trial femoral
stem. Once the femoral canal was prepared, the cement was mixed. Once doughy in consistency, the cement was pressurized into the canal with a cement gun. The stem was then carefully inserted into the canal with care to minimize rotation or
micromotion. Excess cement was removed. Once the cement was polymerized, the joint was irrigated copiously. The acetabular component was inspected to be free of cement particles and other debris. The final head was impacted onto clean and dry
trunion. Leg length and stability were checked again and found to be acceptable. The sciatic nerve was inspected and noted to be free of tension and uninjured.
A dilute betadine soak was performed for approximately 3 minutes, and then the hip was copiously irrigated. I repaired the capsule, piriformis, and conjoint tendon with #2 Ethibond to drill holes in the greater trochanter. Local anesthetic was
injected. The fascia lee was closed with #1 PDS in running fashion. The subcutaneous tissues were closed with 2-0 PDS in running fashion. The skin was reapproximated with 3-0 Monocryl subcuticular suture. I placed a Prineo dressing followed by a
Mepilex Ag dressing. The patient awoke from anesthesia without difficulty. Sponge and instrument counts were correct x2 at the end of the case. Leg lengths were checked on the hospital bed and noted to be equal.
I was present and participated in the entire procedure. The patient was sent to the recovery room in stable condition.
Primitivo Fowler MD
[2024-08-01] MEDS: ASPIRIN 325 MG PO (17:09)
[2024-08-01] MEDS: PROTONIX 40 MG PO (17:09)
[2024-08-01] MEDS: ANCEF 5 IV (21:53)
[2024-08-01] MEDS: BACTROBAN 2% OINTMENT 1 APPLIC NASAL (21:53)
[2024-08-01] MEDS: MYSOLINE 50 MG PO (21:54)
[2024-08-01] MEDS: DECADRON 4 MG PO (21:54)
[2024-08-01] MEDS: COLACE 100 MG PO (21:54)
[2024-08-01] MEDS: REFRESH CELLUVISC GEL 1 DROPS BOTH EYES (21:54)
[2024-08-02 00:03] VITALS: BP 122/59
[2024-08-02 03:38] VITALS: BP 126/63
[2024-08-02] MEDS: ROXICODONE 10 MG PO ×2 (04:55→08:58)
[2024-08-02] MEDS: ANCEF 5 IV (04:55)
[2024-08-02] MEDS: FLUSH (NSS) 2 FLUSH IV (04:56)
[2024-08-02 06:58] LABS: Hematocrit 27.3 % (37.0-47.0); Hemoglobin 9.4 g/dL (12.0-16.0)
[2024-08-02 07:11] VITALS: BP 114/62
[2024-08-02] MEDS: MOBIC 15 MG PO (08:51)
[2024-08-02] MEDS: PROTONIX 40 MG PO (08:51)
[2024-08-02] MEDS: BACTROBAN 2% OINTMENT 1 APPLIC NASAL (08:51)
[2024-08-02] MEDS: DECADRON 4 MG PO (08:51)
[2024-08-02] MEDS: COLACE 100 MG PO (08:51)
[2024-08-02] MEDS: ASPIRIN 325 MG PO (08:51)
[2024-08-02] MEDS: VITAMIN D3 (cholecalciferol) 25 MCG PO (08:58)
[2024-08-02 09:40] VITALS: BP 110/59; PULSE 90; O2SAT 99
--- NOTE | 2024-08-02 10:13 | W.PN.ORTHO ---
Today's Communication / Plan
-
Await PT recs. Did well w/ OT today.
D/c later today if remaining clinically stable.
Assessment
.
Distal Motor Intact: Yes
Dressing:
Clean, dry and intact.
Assessment:
R hip OA s/p R DAYTON w/ Dr Fowler 08/01/24
- s/p R TKA, 03/2023, by Dr Herrera
DVT prophylaxis - ASA, b/l venous foot pumps
R hip pain - 'radiating' down RLE - will add Gabapentin (tolerated previously) and lidocaine patches
Reported abdominal pain overnight - self-resolving - likely related to gas as relieved w/ using the bathroom
- Abdomen soft/NTND/bowel sounds present throughout
- Pt aware to call PCP should pain return/worsen
History of hypotension, improving with adequate hydration - BPs stable overall
- s/p IVF
- Encouraged oral hydration
Hiatal hernia - added Protonix (tolerated previously after R TKA)
Chronic diarrhea - Colace ONLY for post-surgical bowel regimen
Dyslipidemia
Diverticulosis
Right renal cysts
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
Benign essential tremor, controlled with Primidone
Restless leg syndrome
Multilevel degenerative disc disease
Dysplasia of hard palate, treated conservatively
Stress incontinence
Hemochromatosis, status post previous phlebotomy
Lichen sclerosis
Lichen planus
Raynaud's syndrome
COVID-19, 07/2022, without residual deficits
Plan
.
Surgery / Date: R DAYTON w/ Dr Fowler 08/01/24
DVT Prophylaxis: Aspirin
Activity:
Out of bed.
PT/OT
Discharge Plan: Home w/ Outpatient PT
Subjective
.
.:
Patient appearing to rest comfortably in her chair.
Reports R 'radiating' hip pain - pain meds adjusted.
Some abdominal discomfort overnight - likely gas related. Self resolved by POD 1.
Eager for potential d/c today.
Vital Signs and Labs
.
Vital Signs and Labs:
Lab Results
08/02/24 06:23
07/04/24 13:08
Temp Pulse Resp BP Pulse Ox
98.4 F 84 15 114/62 96
08/02/24 07:11 08/02/24 07:11 08/02/24 07:11 08/02/24 07:11 08/02/24 07:11
Physical Exam
-
HEENT: No pallor, cyanosis, or jaundice. Throat clear.
NECK: Supple. No JVD.
RESPIRATORY: Lungs clear to auscultation.
CVS: S1, S2 normal. RRR.�
ABDOMEN: Soft, non-tender. No distension.
EXTREMITIES: Strength equal, no calf pain with palpation/dorsiflexion. Calves soft.
PLASTIC BUBBLE PACKER: AOx3. No focal deficits. bus girl grossly intact
--- NOTE | 2024-08-02 10:23 | W.DS.TRANS ---
DC Summary - Director Nursing Service
-
Discharge Instructions:
Sleep Apnea Risk Low
Discharge Diagnosis/Procedures R hip OA s/p R DAYTON w/ Dr Fowler 08/01/24
Diet Regular
Activity As tolerated,With Walker
Driving Restrictions Not until seen by your Dr
Bathing Restrictions OK to Shower
Other Services PT
Wound Care Leave dressing on until seen by surgeon's office
for follow-up.
Instructions:
Stand-Alone Forms: Total Hip/Knee Replacement D/C
Changes to Home Medications: Yes
Discharge Medications:
DC Medications w/original date entered in [employer]
cholecalciferol (vitamin D3) 25 mcg (1,000 unit) tablet 25 mcg PO MOWEFR Supplement 03/30/23
artificial tears with lanolin eye ointment 1 applic BOTH EYES DAILY Eye Condition 04/20/23
pimecrolimus 1 % topical cream 1 applic topical DAILY #0 grams 04/21/23
estradiol 0.01% (0.1 mg/gram) vaginal cream (Estrace) 1 g vaginal QWEEK 01/30/24
psyllium seed (sugar) oral powder (Metamucil (sugar) oral powder) 1 tsp PO DAILY 01/30/24
tacrolimus 0.1 % topical ointment (Protopic) 1 applic topical WEEKLY 01/30/24
loperamide 2 mg tablet 2 mg PO Q6H PRN diarrhea 07/26/24
primidone 50 mg tablet 50 mg PO HS 07/26/24
aspirin 325 mg tablet 325 mg PO DAILY #30 tabs 08/01/24
dexamethasone 4 mg tablet 4 mg PO Q12H Anti-inflammatory #7 tabs 08/01/24
docusate sodium 100 mg capsule 100 mg PO BID #30 caps 08/01/24
meloxicam 15 mg tablet 15 mg PO DAILY #14 tabs 08/01/24
ondansetron HCl 4 mg tablet 4 mg PO Q6H PRN nausea and vomiting #30 tabs 08/01/24
oxycodone 5 mg tablet 5 - 10 mg (1 - 2 x 5 mg) PO Q6H PRN moderate-severe pain #30 tabs 08/01/24
sennosides 8.6 mg tablet (Senna Laxative) 17.2 mg (2 x 8.6 mg) PO BID PRN constipation #30 tabs 08/01/24
gabapentin 100 mg capsule 200 mg (2 x 100 mg) PO BID neuropathic pain #30 caps 08/02/24
lidocaine 4 % topical patch 2 patch topical DAILY #30 ea 08/02/24
Home Medication Changes
aspirin 325 mg tablet 325 mg PO DAILY #30 tabs 08/01/24
dexamethasone 4 mg tablet 4 mg PO Q12H Anti-inflammatory #7 tabs 08/01/24
docusate sodium 100 mg capsule 100 mg PO BID #30 caps 08/01/24
meloxicam 15 mg tablet 15 mg PO DAILY #14 tabs 08/01/24
ondansetron HCl 4 mg tablet 4 mg PO Q6H PRN nausea and vomiting #30 tabs 08/01/24
oxycodone 5 mg tablet 5 - 10 mg (1 - 2 x 5 mg) PO Q6H PRN moderate-severe pain #30 tabs 08/01/24
sennosides 8.6 mg tablet (Senna Laxative) 17.2 mg (2 x 8.6 mg) PO BID PRN constipation #30 tabs 08/01/24
gabapentin 100 mg capsule 200 mg (2 x 100 mg) PO BID neuropathic pain #30 caps 08/02/24
lidocaine 4 % topical patch 2 patch topical DAILY #30 ea 08/02/24
Pending Results: No
[2024-08-02 10:43] VITALS: BP 106/51; PULSE 85; O2SAT 97
--- NOTE | 2024-08-02 10:52 | CM ---
Addendum entered by Laura Scott 08/02/24 10:58:
IMM benefit explained; form signed @[id number]
Original Note:
Met with patient at bedside; Initial assessment completed
Pharmacy verified: [facility] @ [id number] [place]
Patient and live in a one floor cottage @ [facility]
PLOF: independent w/ ADLs; ambulated with a cane when outside of her home
Spouse will transport
NO SNF utilization history; past home health services with [facility] in March 2023
Plan: Discharge to home today; Outpatient PT scheduled per PA
[2024-08-02 10:55] VITALS: BP 112/55
[2024-08-02] MEDS: NEURONTIN 200 MG PO (11:08)
[2024-08-02] MEDS: LIDOCAINE 4% PATCH 2 PATCH TOPICAL (11:08)
== END 2024-08-02 12:50 | disposition home or self-care (01) | DRG 470 ==
LOC: 2 SOUTH 08:16
PROVIDERS: ADMITTING PHYSICIAN Orthopaedic Surgery; FAMILY PHYSICIAN Family Medicine
PROC: 0SR9039 Replacement of Right Hip Joint with Ceramic Synthetic Substitute, Cemented, Open Approach (ICD-10-PCS; 2024-08-01)
DX: M16.11 Unilateral primary osteoarthritis, right hip (principal); K44.9 Diaphragmatic hernia without obstruction or gangrene; I95.9 Hypotension, unspecified; D64.9 Anemia, unspecified
CPT/HCPCS: 36415; 73502; 80053; 83036; 85014; 85018; 85027; 86850; 86900; 86901; 87070; 93005; 97110; 97116; 97162; 97166; 97530; 97535; C1713; C1776